=== PATIENT | female | born 1985 ===

== ENCOUNTER 2017-11-15 00:48 | Emergency (ER) | payer SELFPAY ==
[2017-11-15 01:07] VITALS: O2SAT 98
[2017-11-15] MEDS ORDERED: Sodium Chloride 0.9% 1,000 ML IV STA (01:52)
--- NOTE | 2017-11-15 02:43 | ED PDOC ---
HPI: Headache Time Seen by Provider: 11/15/17 01:42 Chief Complaint (Nursing): Headache Chief Complaint (Provider): Headache History Per: Patient History/Exam Limitations: no limitations Onset/Duration Of Symptoms: Days (2x) Current Symptoms Are (Timing): Still Present Severity: Moderate Associated Symptoms: Nausea, Vomiting. denies: Photophobia Additional Complaint(s): 31 year old female with no pertinent past medical history presents to the ED with complaints of a headache that started 2x days ago. Patient describes the headache as an occipital headache that radiates to the front of her head and right eye. Patient has associated symptoms of nausea, vomiting (non bilious, non bloody). Patient denies having photophobia, neck rigidity, and fevers. Patient reports having a similar headache a few weeks ago, which resolved a couple of days later. PMD: Efrain Mcgrath MD Past Medical History Reviewed: Historical Data, Nursing Documentation, Vital Signs Vital Signs: Last Vital Signs Temp 98 F 11/15/17 01:02 Pulse 65 11/15/17 01:02 Resp 16 11/15/17 01:02 BP 138/84 11/15/17 01:02 Pulse Ox 98 11/15/17 01:02 - Medical History PMH: No Chronic Diseases - Surgical History Surgical History: No Surg Hx - Family History Family History: States: No Known Family Hx - Social History Current smoker - smoking cessation education provided: No Alcohol: None Drugs: Denies - Home Medications Home Medications: Ambulatory Orders Medication Instructions Recorded Naproxen [Naprosyn] 500 mg PO Q6 #30 tablet 01/05/16 Acetaminophen/Butalbital/Caf 1 - 2 tab PO Q6 PRN #20 tab 11/15/17 [Fioricet] - Allergies Allergies/Adverse Reactions: Allergies Allergy/AdvReac Type Severity Reaction Status Date / Time shrimp Allergy ANAPHYLAXIS Verified 11/15/17 01:06 Review of Systems ROS Statement: Except As Marked, All Systems Reviewed And Found Negative Constitutional: Negative for: Fever Gastrointestinal: Positive for: Nausea, Vomiting (non bilious, non bloody) Neurological: Positive for: Headache. Negative for: Other (photophobia, neck rigidity) Physical Exam - Reviewed Nursing Documentation Reviewed: Yes Vital Signs Reviewed: Yes - Physical Exam Appears: Positive for: Well, Non-toxic, No Acute Distress Head Exam: Positive for: ATRAUMATIC, NORMOCEPHALIC Skin: Positive for: Normal Color Eye Exam: Positive for: Normal appearance Neck: Positive for: Normal Cardiovascular/Chest: Positive for: Regular Rate, Rhythm Respiratory: Positive for: Normal Breath Sounds Neurologic/Psych: Positive for: Alert, Oriented (3x) - Laboratory Results Result Diagrams: 11/15/17 02:30 11/15/17 02:30 - ECG O2 Sat by Pulse Oximetry: 98 (RA) Pulse Ox Interpretation: Normal Medical Decision Making Medical Decision Makin:42 Initial impression: 31 year old female with a headache Initial plan: * CT head w/o contrast * chem * CBC * IV NS 1,000 mL 1,000 mls/ hr * reglan 10 mg IVPB once * toradol 30 mg IV 4:55 CT read and reviewed by radiologist, showed no acute findings. Labs show no clinical significance. Upon provider reevaluation patient is feeling better, is medically stable, and requires no further treatment in the ED at this time. Patient will be discharged with Rx for fioricet for headache. Counseling was provided and all questions were answered regarding diagnosis of a migraine headache. There is agreement to discharge plan. Return if symptoms persist or worsen. Scribe Attestation: Documented by Marley Johnson, acting as a scribe for Miguelangel James MD. Provider Scribe Attestation: All medical record entries made by the Scribe were at my direction and personally dictated by me. I have reviewed the chart and agree that the record accurately reflects my personal performance of the history, physical exam, medical decision making, and the department course for this patient. I have also personally directed, reviewed, and agree with the discharge instructions and disposition. Disposition - Clinical Impression Clinical Impression: Headache - Disposition Referrals: [facility] [Outside] Disposition Time: 04:55 Condition: IMPROVED Prescriptions: Acetaminophen/Butalbital/Caf [Fioricet] 1 - 2 tab PO Q6 PRN #20 tab PRN Reason: Headache Instructions: Migraine Headache (DC) Forms: [facility] (Setswana) Print Language: SERBIAN
[2017-11-15 02:46] LABS: BASO % 0.4 % (0.0-2.0); EOS # 0.2 K/uL (0.0-0.7); EOS % 2.6 % (0.0-4.0); HEMOGLOBIN 12.2 g/dL (12.0-16.0); LYMPH # 3.5 K/uL (1.0-4.3); MEAN CELL VOLUME 85.9 fl (81.0-99.0); MEAN CORPUSCULAR HEMOGLOBIN 29.3 pg (27.0-31.0); MEAN CORPUSCULAR HGB CONC 34.1 g/dL (33.0-37.0); MEAN PLATELET VOLUME 8.5 fl (7.2-11.7); MONO # 0.5 K/uL (0.0-0.8); MONO % 7.7 % (0.0-10.0); NEUT % 41.3 % (50.0-75.0); NRBC % 0.1 % (0.0-0.0); RBC 4.15 Mil/uL (3.80-5.20); WHITE BLOOD COUNT 7.2 K/uL (4.8-10.8)
[2017-11-15 02:58] LABS: ALB/GLOB RATIO 1.3 (1.0-2.1); ALBUMIN 4.2 g/dL (3.5-5.0); ALT/SGPT 41 U/L (9-52); AST/SGOT 23 U/L (14-36); BLOOD UREA NITROGEN 17 mg/dl (7-17); CALCIUM 9.6 mg/dL (8.4-10.2); GFR NON-AFRICAN AMERICAN > 60
[2017-11-15 05:05] VITALS: BP 119/76; PULSE 82; RESP 17; TEMP 98.4
--- NOTE | 2017-11-15 08:09 | CT ---
Date of service: 11/15/2017 PROCEDURE: CT HEAD WITHOUT CONTRAST. HISTORY: headache COMPARISON: None available. TECHNIQUE: Axial computed tomography images were obtained through the head/brain without intravenous contrast. Radiation dose: Total exam DLP = 771 mGy-cm. This CT exam was performed using one or more of the following dose reduction techniques: Automated exposure control, adjustment of the mA and/or kV according to patient size, and/or use of iterative reconstruction technique. FINDINGS: HEMORRHAGE: No intracranial hemorrhage. BRAIN: No mass effect or edema. No atrophy or chronic microvascular ischemic changes. VENTRICLES: Unremarkable. No hydrocephalus. CALVARIUM: Unremarkable. PARANASAL SINUSES: Right sphenoid sinus inflammatory change-probable benign inflammatory retention cyst here present. MASTOID AIR CELLS: Unremarkable as visualized. No inflammatory changes. OTHER FINDINGS: None. IMPRESSION: No intracranial hemorrhage or mass effect. Right sphenoid sinus inflammatory change-probable benign inflammatory retention cyst here present. Concordant results (preliminary interpretation) provided by usarad.
== END 2017-11-15 05:02 | disposition home or self-care (01) ==
LOC: H.ER 00:48
DX: R51 Headache (principal)
CPT/HCPCS: 70450; 80053; 81025; 83735; 85025; 96365; 96375; 99284; J1885; J2765; J7030